=== PATIENT | male | born 1970 | race Caucasian/White ===

== ENCOUNTER 2017-02-04 06:56 | Emergency (ER) | payer BC ==
--- NOTE | ~2017-02-04 | EKG ---
PATIENT: ADRIANNA AKBAR UNIT #: [id number] Ventricular Rate: 83 BPM Atrial Rate: 83 BPM P-R Interval: 160 ms QRS Duration: 100 ms Q-T Interval: 404 ms QTC Calculation(Bezet): 474 ms P [place]: 37 degrees Calculated R [place]: 18 degrees Calculated T [place]: 38 degrees Diagnosis Line: Normal sinus rhythm Diagnosis Line: Normal ECG Diagnosis Line: No previous ECGs available Diagnosis Line: Confirmed by MISTY PARISI MD ([id number]) on 02/04/2017 Diagnosis Line: 10:09:12 AM INTERPRETING MD: AILIN ROCHA
[~2017-02-04 06:56] MED LIST: FLEXERIL PO; MEDROL PO; VICODIN 5/500 T1 TAB PO
== END 2017-02-04 07:55 | disposition home or self-care (01) ==
LOC: CED 06:56
DX: M62.838 Other muscle spasm (principal); K21.9 Gastro-esophageal reflux disease without esophagitis; F41.9 Anxiety disorder, unspecified; F17.210 Nicotine dependence, cigarettes, uncomplicated; Z88.7 Allergy status to serum and vaccine; Z88.8 Allergy status to other drugs, medicaments and biological substances
CPT/HCPCS: 93005; 96372; 99283; J1100; J1885